=== PATIENT | female | born 1975 | race Caucasian/White ===

== ENCOUNTER 2018-10-14 10:14 | Emergency (ER) | payer OTHER ==
[~2018-10-14] VITALS: Ht 167.6 cm; Wt 74.0 kg
[2018-10-14 10:56] VITALS: BP 136/73; PULSE 87; RESP 20; Ht 167.6 cm; Wt 74.0 kg
[2018-10-14] MEDS ORDERED: KETOROLAC 30 MG INJ IM STA (12:36)
[2018-10-14] MEDS ORDERED: IBUP-1542 PO (15:13)
[2018-10-14] MEDS ORDERED: ACET-141 PO (15:13)
--- NOTE | 2018-10-14 15:16 | ERD ---
ER Documentation Chief Complaint Chief Complaint Complains of right ankle and foot pain x ROS All systems reviewed and are negative except as per history of present illness. Medications Home Meds Active Scripts Acetaminophen* (Acetaminophen*) 500 MG Extra Strength Tablet, 500 MG PO Q4H PRN for PAIN AND OR ELEVATED TEMP, #30 TAB Prov:CAROLANN GONSALVES DO 10/14/18 Ibuprofen* (Motrin*) 600 Mg Tab, 600 MG PO Q6H PRN for PAIN AND OR ELEVATED TEMP, #30 TAB Prov:CAROLANN GONSALVES DO 10/14/18 Allergies Allergies: Coded Allergies: No Known Allergy (Unverified , 10/14/18) PMhx/Soc Hx Cardiac Disorders: Yes (HTN) Hx Miscellaneous Medical Probl: Yes (DM) Hx Alcohol Use: No Hx Substance Use: No Hx Tobacco Use: No Physical Exam Vitals Vital Signs Date Temp Pulse Resp B/P (MAP) Pulse Ox O2 O2 Flow FiO2 Time Delivery Rate 10/14/18 97.5 87 20 136/73 97 10:56 (94) Physical Exam Const: No acute distress Head: Atraumatic Eyes: Normal Conjunctiva ENT: Normal External Ears, Nose and Mouth. Neck: Full range of motion. No meningismus. Resp: Clear to auscultation bilaterally Cardio: Regular rate and rhythm, no murmurs Abd: Soft, non tender, non distended. Normal bowel sounds Skin: No petechiae or rashes Back: No midline or flank tenderness Ext: No cyanosis, or edema Neur: Awake and alert Psych: Normal Mood and Affect Results 24 hrs Laboratory Tests Test 10/14/18 12:59 POC Beta HCG, Qualitative NEGATIVE Current Medications Medications Dose Sig/Mariam Start Time Status Last (Trade) Ordered Route PRN Stop Time Admin Dose Reason Admin Ketorolac 30 mg ONCE STAT 10/14/18 DC 10/14/18 Tromethamine IM 12:36 13:07 (Toradol) 10/14/18 12:38 Departure Diagnosis: Primary Impression: Pain of left leg Condition: Fair Patient Instructions: Self-Care for Strains and Sprains Referrals: COMM[facility]ITY CLIN[facility] YOU HAVE RECEIVED A MEDICAL SCREENING EXAM AND THE RESULTS INDICATE THAT YOU DO NOT HAVE A CONDITION THAT REQUIRES URGENT TREATMENT IN THE EMERGENCY DEPARTMENT. FURTHER EVALUATION AND TREATMENT OF YOUR CONDITION CAN WAIT UNTIL YOU ARE SEEN IN YOUR DOCTORS OFFICE WITHIN THE NEXT 1-2 DAYS. IT IS YOUR RESPONSIBILITY TO MAKE AN APPOINTMENT FOR FOLOW-UP CARE. IF YOU HAVE A PRIMARY DOCTOR --you should call your primary doctor and schedule an appointment IF YOU DO NOT HAVE A PRIMARY DOCTOR YOU CAN CALL OUR PHYSICIAN REFERRAL HOTLINE AT IF YOU CAN NOT AFFORD TO SEE A PHYSICIAN YOU CAN CHOSE FROM THE FOLLOWING [facility] [id number] [facility] [address] [facility] [facility] [address] [facility] [address]. [facility] [address] [facility] [facility] [address] Additional Instructions: Llame al doctor MAANA y david javier ANGELES PARA DENTRO DE 1-2 ROSA.Dgale a la secretaria que nosotros le instruimos hacer esta [place].Avise o llame si earl condicin se empeora antes de la [place]. Regresa aqui si peor o no mejor. CAROLANN GONSALVES DO Oct 14, 2018 15:16
== END 2018-10-14 15:45 | disposition left against medical advice (07) ==
LOC: FTE 10:14
DX: M79.605 Pain in left leg (principal); I10 Essential (primary) hypertension; E11.9 Type 2 diabetes mellitus without complications
CPT/HCPCS: 73590; 73610; 81025; 96372; J1885; Z7502

== ENCOUNTER 2019-04-19 10:13 | Emergency (ER) | payer OTHER ==
[~2019-04-19] VITALS: Ht 157.5 cm; Wt 76.1 kg
[~2019-04-19 10:13] MED LIST: ACET-141 PO; IBUP-1542 PO
[2019-04-19 10:36] VITALS: Ht 157.5 cm; Wt 76.1 kg
[2019-04-19] MEDS ORDERED: KETOROLAC 60 MG INJ IM STA (12:50)
[2019-04-19 14:31] VITALS: BP 118/76; PULSE 79; RESP 18
== END 2019-04-19 14:32 | disposition home or self-care (01) ==
LOC: FTE 10:13
DX: M79.604 Pain in right leg (principal); M79.605 Pain in left leg; I10 Essential (primary) hypertension; E11.9 Type 2 diabetes mellitus without complications
CPT/HCPCS: 81025; 93970; 96372; J1885; Z7502